=== PATIENT | male | born 1940 | race Caucasian/White ===

== ENCOUNTER 2017-10-26 20:12 | Emergency (ER) | payer MEDICARE ==
[~2017-10-26] VITALS: Ht 165.1 cm; Wt 85.0 kg
[~2017-10-26 20:12] MED LIST: EZET1TAB30 PO; FLUT16SP NAS; LISI-167 PO; METO25TA91 PO; WARF-36 PO; WARF2.5T73 PO
[2017-10-26 20:17] VITALS: BP 172/82
[2017-10-26] MEDS ORDERED: MECLIZINE CHEWABLE 25 MG TAB ONE (20:26)
[2017-10-26] MEDS ORDERED: SODIUM CHLORIDE FLUSH 10ML SYR IVF ONE (20:30)
[2017-10-26] MEDS ORDERED: MECLIZINE CHEWABLE 25 MG TAB PO ONE (20:30)
[2017-10-26] MEDS ORDERED: PROMETHAZINE 25 MG/ML, 1ML IM ONE (20:30)
[2017-10-26 20:51] LABS: BASOPHILS # (AUTO) 0.05 x10^3/uL (0-0.1); BASOPHILS % (AUTO) 1 % (0-1); EOSINOPHILS # (AUTO) 0.15 x10^3/uL (0-0.4); EOSINOPHILS % (AUTO) 2 % (1-7); LYMPHOCYTES # (AUTO) 1.17 x10^3/uL (1-3.4); LYMPHOCYTES % (AUTO) 19 % (22-44); MD NO; MEAN CORPUSCULAR HEMOGLOBIN 31.7 pg (27.5-34.5); MEAN CORPUSCULAR HGB CONC 34.2 g/dL (33.2-36.2); MEAN CORPUSCULAR VOLUME 92.6 fL (81-97); MEAN PLATELET VOLUME 7.7 fL (7.4-10.4); MONOCYTES # (AUTO) 0.48 x10^3/uL (0.2-0.8); MONOCYTES % (AUTO) 8 % (2-9); NEUTROPHILS # (AUTO) 4.17 x10^3/uL (1.8-6.8); NEUTROPHILS % (AUTO) 69 % (42-75); PLATELET COUNT 236 x10^3/uL (130-400); RED BLOOD COUNT 4.42 x10^6/uL (4.38-5.82); RED CELL DISTRIBUTION WIDTH 13.5 % (9.4-14.8)
[2017-10-26 21:02] LABS: INTERNATIONAL NORMALIZED RATIO 1.75 (0.93-1.1)
[2017-10-26 21:03] LABS: ALBUMIN 3.6 g/dL (3.4-5.0); ANION GAP 5 mmol/L (5-15); CALCIUM 8.9 mg/dL (8.5-10.1); CHLORIDE 107 mmol/L (98-107)
[2017-10-26 21:08] LABS: ALANINE AMINOTRANSFERASE 35 U/L (12-78); ALKALINE PHOSPHATASE 40 U/L (45-117); BILIRUBIN,TOTAL 0.7 mg/dL (0.2-1.0); CREATININE 1.11 mg/dL (0.7-1.3); TOTAL PROTEIN 6.8 g/dL (6.4-8.2); TROPONIN I < 0.015 ng/mL (0.000-0.045)
== END 2017-10-26 22:36 | disposition home or self-care (01) ==
LOC: ED 22:05
DX: H81.391 Other peripheral vertigo, right ear (principal); I10 Essential (primary) hypertension; Z86.73 Personal history of transient ischemic attack (TIA), and cerebral infarction without residual deficits; R79.1 Abnormal coagulation profile
CPT/HCPCS: 36415; 70450; 71045; 80053; 84484; 85025; 85610; 85730; 93005; 99283; 99285

== ENCOUNTER → 2017-11-07 | Outpatient (CLI) | payer MEDICARE | END | disposition home or self-care (01) | LOC: CFH 12:53 | PROVIDERS: ATTEND Family Medicine | DX: M47.817 Spondylosis without myelopathy or radiculopathy, lumbosacral region (principal); M17.11 Unilateral primary osteoarthritis, right knee | CPT/HCPCS: 72114 ==

== ENCOUNTER → 2017-11-08 | Outpatient (CLI) | payer MEDICARE | END | disposition home or self-care (01) | LOC: CFH 12:55 | PROVIDERS: ATTEND Internal Medicine Gastroenterology | DX: K59.00 Constipation, unspecified (principal); J44.9 Chronic obstructive pulmonary disease, unspecified; R19.7 Diarrhea, unspecified; R15.9 Full incontinence of feces; Z79.01 Long term (current) use of anticoagulants | CPT/HCPCS: 74018 ==

== ENCOUNTER 2018-07-16 20:20 | Emergency (ER) | payer MEDICARE ==
[~2018-07-16] VITALS: Ht 165.1 cm; Wt 82.0 kg
[~2018-07-16 20:20] MED LIST changes: +WARF2.5T32 PO; -WARF2.5T73 PO
[2018-07-16] MEDS ORDERED: SITA25TA PO (20:37)
[2018-07-16] MEDS ORDERED: METF500T17 PO (20:37)
[2018-07-16] MEDS ORDERED: SIMV5TAB14 PO (20:37)
[2018-07-16] MEDS ORDERED: BUPR75TA6 PO (20:37)
--- NOTE | 2018-07-16 21:02 | NUR ---
REMAINS ON MONITOR. AWAITING MD GRIER. COUGHING HAS SLOWED DOWN. REPORT TO DONTA SHERIDAN
--- NOTE | 2018-07-16 21:02 | NUR ---
RECEIVED REPORT FROM ARVIN HOGUE. PATIENT ALERT AND ORIENTED. SYMPTOMS RESOLVED.
--- NOTE | 2018-07-16 21:25 | NUR ---
CRANE HELPER AT BEDSIDE FOR BLOOD DRAW.
[2018-07-16 21:40] LABS: BASOPHILS # (AUTO) 0.02 x10^3/uL (0-0.1); BASOPHILS % (AUTO) 0 % (0-1); EOSINOPHILS # (AUTO) 0.15 x10^3/uL (0-0.4); EOSINOPHILS % (AUTO) 2 % (1-7); LYMPHOCYTES # (AUTO) 0.71 x10^3/uL (1-3.4); LYMPHOCYTES % (AUTO) 10 % (22-44); MD NO; MEAN CORPUSCULAR HEMOGLOBIN 31.6 pg (27.5-34.5); MEAN CORPUSCULAR HGB CONC 34.3 g/dL (33.2-36.2); MEAN CORPUSCULAR VOLUME 92.3 fL (81-97); MEAN PLATELET VOLUME 7.6 fL (7.4-10.4); MONOCYTES # (AUTO) 1.08 x10^3/uL (0.2-0.8); MONOCYTES % (AUTO) 16 % (2-9); NEUTROPHILS # (AUTO) 4.97 x10^3/uL (1.8-6.8); NEUTROPHILS % (AUTO) 72 % (42-75); PLATELET COUNT 220 x10^3/uL (130-400); RED BLOOD COUNT 4.32 x10^6/uL (4.38-5.82); RED CELL DISTRIBUTION WIDTH 13.9 % (9.4-14.8)
[2018-07-16 21:50] LABS: ALANINE AMINOTRANSFERASE 29 U/L (12-78); ALBUMIN 3.5 g/dL (3.4-5.0); ANION GAP 7 mmol/L (5-15); CALCIUM 9.2 mg/dL (8.5-10.1); CHLORIDE 107 mmol/L (98-107); CREATININE 1.28 mg/dL (0.7-1.3)
[2018-07-16 21:55] LABS: ALKALINE PHOSPHATASE 44 U/L (45-117); BILIRUBIN,TOTAL 0.6 mg/dL (0.2-1.0); TOTAL PROTEIN 6.9 g/dL (6.4-8.2); TROPONIN I 0.021 ng/mL (0.000-0.045)
--- NOTE | 2018-07-16 22:06 | NUR ---
all labs resulted. chart up for MD to recheck
[2018-07-16 23:21] VITALS: BP 164/75
== END 2018-07-16 23:23 | disposition home or self-care (01) ==
LOC: ED 23:10
DX: R05 Cough (principal); I10 Essential (primary) hypertension; E11.9 Type 2 diabetes mellitus without complications; Z87.891 Personal history of nicotine dependence
CPT/HCPCS: 36415; 80053; 84484; 85025; 93005; 99284

== ENCOUNTER → 2018-08-27 | Outpatient (CLI) | payer MEDICARE ==
[~2018-08-27] MED LIST changes: +BUPR75TA6 PO; +METF500T17 PO; +SIMV5TAB14 PO; +SITA25TA PO
== END | disposition home or self-care (01) ==
LOC: CFH 11:49
PROVIDERS: ATTEND Family Medicine
DX: M19.012 Primary osteoarthritis, left shoulder (principal); M19.011 Primary osteoarthritis, right shoulder

== ENCOUNTER 2020-03-22 18:11 | Emergency (ER) | payer MEDICARE ==
[~2020-03-22] VITALS: Ht 165.1 cm; Wt 75.0 kg
[~2020-03-22 18:11] MED LIST changes: -FLUT16SP NAS; +FLUT16SP24 NAS
[2020-03-22 18:15] VITALS: BP 181/86
--- NOTE | 2020-03-22 19:12 | NUR ---
pt to room from lobby
--- NOTE | 2020-03-22 19:15 | NUR ---
THIS IS AN 81Y M THAT COMES IN FOR "FEELING LIKE SOMETHING IS IN MY THROAT ONLY WHEN I SWALLOW" PT REPORTS THIS STARTING AFTER TAKING HIS NIGHTIME MEDS. PT ABLE TO EAT AND DRINK PT MANAGING ALL SECRETIONS WITHOUT INTERVENTIONS. SARAH AT THIS TIME.
--- NOTE | 2020-03-22 19:47 | NUR ---
ALL RESULTS BACK AT THIS TIME CHART UP FOR RECHECK
--- NOTE | 2020-03-22 20:00 | NUR ---
PT TOLERATED SODA AT THIS TIME NO DIFFICULTY/ COMPLAINTS NOTED AT THIS TIME
--- NOTE | 2020-03-22 20:32 | NUR ---
Patient/Caregiver given discharge instructions and they have confirmed that they understand the instructions. Patient WHEELED TO DC DESK WITH CANE AND ALL BELONGINGS
== END 2020-03-22 20:33 | disposition home or self-care (01) ==
LOC: ED 20:27
DX: K22.8 Other specified diseases of esophagus (principal); E11.9 Type 2 diabetes mellitus without complications; I11.9 Hypertensive heart disease without heart failure; Z95.0 Presence of cardiac pacemaker; Z90.49 Acquired absence of other specified parts of digestive tract
CPT/HCPCS: 74220; 99283

== ENCOUNTER 2020-05-31 10:36 | Emergency (ER) | payer MEDICARE ==
[~2020-05-31] VITALS: Ht 167.6 cm; Wt 75.0 kg
--- NOTE | 2020-05-31 10:40 | NUR ---
PT BIB [facility] FROM [facility] NAUSEA, SOB, AND EPIGASTRIC PAIN ONSET LAST NIGHT AT 2200. UPON ARRIVAL PT DENIES PAIN OR NAUSEA, "ITS REALLY GONE NOW". NO RESPIRATORY DISTRESS NOTED. PT A&OX4. ABD SOFT, NON-TENDER. PACED RHYTHM NOTED ON MONITOR, HR 74. FSBS SWING TENDER 183. BP/SPO2/ECG MONITORING IN PLACE. EKG COMPLETED BY TECH UPON ARRIVAL.
[2020-05-31] MEDS ORDERED: FAMOTIDINE 20 MG/2 ML IV ONE (11:00)
[2020-05-31] MEDS ORDERED: SODIUM CHLORIDE 0.9% 1,000ML IVBOLUS ONE (11:00)
[2020-05-31] MEDS ORDERED: ONDANSETRON 2MG/ML, 2ML IVPush ONE (11:00)
[2020-05-31] MEDS ORDERED: SODIUM CHLORIDE FLUSH 10ML SYR IVF ONE (11:00)
[2020-05-31] MEDS ORDERED: ONDANSETRON 2MG/ML, 2ML ONE (11:11)
[2020-05-31] MEDS ORDERED: FAMOTIDINE 20 MG/2 ML ONE (11:12)
--- NOTE | 2020-05-31 11:14 | NUR ---
PT TO XRAY. DELAY IN MEDICATING
[2020-05-31 11:21] LABS: BASOPHILS % (AUTO) 1 % (0-1); EOSINOPHILS % (AUTO) 1 % (1-7); LYMPHOCYTES % (AUTO) 15 % (22-44); MEAN CORPUSCULAR HEMOGLOBIN 32.1 pg (27.5-34.5); MEAN PLATELET VOLUME 8.1 fL (7.4-10.4); MONOCYTES % (AUTO) 9 % (2-9); NEUTROPHILS % (AUTO) 75 % (42-75); PLATELET COUNT 231 x10^3/uL (130-400); RED BLOOD COUNT 4.66 x10^6/uL (4.38-5.82)
[2020-05-31 11:22] LABS: MD NO
[2020-05-31 11:31] LABS: INTERNATIONAL NORMALIZED RATIO 1.06 (0.93-1.1); PROTHROMBIN TIME 11.3 Seconds (9.6-11.5)
[2020-05-31 11:36] LABS: ALANINE AMINOTRANSFERASE 25 U/L (12-78); ALBUMIN 3.6 g/dL (3.4-5.0); ANION GAP 5 mmol/L (5-15); CALCIUM 9.4 mg/dL (8.5-10.1); CHLORIDE 106 mmol/L (98-107); CREATININE 1.18 mg/dL (0.7-1.3)
[2020-05-31 11:40] LABS: ALKALINE PHOSPHATASE 51 U/L (45-117); BILIRUBIN,TOTAL 0.7 mg/dL (0.2-1.0); TOTAL PROTEIN 6.6 g/dL (6.4-8.2); TROPONIN I < 0.015 ng/mL (0.000-0.045)
--- NOTE | 2020-05-31 11:48 | NUR ---
RETURNED FROM RADIOLOGY. NAD NOTED. UA COLLECTED AND SENT TO LAB. IVF HUNG. PT REFUSING PEPCID/ZOFRAN, DENIES PAIN/NAUSEA AT THIS TIME. AT BEDSIDE. PT/ UPDATED TO POC AND DEMONSTRATES UNDERSTANDING.
[2020-05-31 12:10] LABS: MICROSCOPIC NOT IND
--- NOTE | 2020-05-31 12:33 | NUR ---
PT CONTINUES TO DENY PAIN OR NAUSEA. POC IS DC. IV DC'D. PT ASSISTED TO DRESS. AT BEDSIDE. AWAITING DC INSTRUCTIONS.
[2020-05-31 12:34] VITALS: BP 150/70
--- NOTE | 2020-05-31 12:50 | NUR ---
DC EDUCATION PROVIDED, PT/SO DEMONSTRATES UNDERSTANDING. PT TRANSFERED SELF TO WHEELCHAIR. WHEELED TO DC WITH RN AND . TO TRANSPORT PT HOME.
== END 2020-05-31 12:52 | disposition home or self-care (01) ==
LOC: ED 12:50
DX: R10.33 Periumbilical pain (principal); R11.2 Nausea with vomiting, unspecified; R19.7 Diarrhea, unspecified; R06.02 Shortness of breath; E11.9 Type 2 diabetes mellitus without complications; R94.31 Abnormal electrocardiogram [ECG] [EKG]; I11.9 Hypertensive heart disease without heart failure; Z95.0 Presence of cardiac pacemaker; Z90.49 Acquired absence of other specified parts of digestive tract
CPT/HCPCS: 36415; 74022; 80053; 81003; 83690; 84484; 85025; 85610; 85730; 93005; 99285; J7030

== ENCOUNTER → 2020-06-11 | Outpatient (CLI) | payer MEDICARE | END | disposition home or self-care (01) | LOC: CFH 12:57 | PROVIDERS: ATTEND Family Medicine | DX: G31.89 Other specified degenerative diseases of nervous system (principal); H81.90 Unspecified disorder of vestibular function, unspecified ear; I67.82 Cerebral ischemia | CPT/HCPCS: 70450 ==

== ENCOUNTER → 2020-07-14 | Outpatient (CLI) | payer MEDICARE ==
[~2020-07-14] MED LIST changes: +OMNIPAQUE 350 MG/ML, 100ML BOTTLE ONE
== END | disposition home or self-care (01) ==
LOC: CFH 12:33
PROVIDERS: ATTEND Nurse Practitioner Family
DX: I65.23 Occlusion and stenosis of bilateral carotid arteries (principal); R42 Dizziness and giddiness
CPT/HCPCS: 70496; 70498; 82565; Q9967